=== PATIENT | male | born 1985 | race African-American/Black ===

== ENCOUNTER 2021-06-12 09:00 | Emergency (ER) | payer OTHER ==
[~2021-06-12] VITALS: Ht 180.3 cm; Wt 80.7 kg
[2021-06-12] MEDS ORDERED: KEPPRA XR750 MG PO (09:11)
[2021-06-12 11:11] VITALS: BP 144/56
== END 2021-06-12 11:17 | disposition home or self-care (01) ==
LOC: ER 09:00
PROVIDERS: Student in an Organized Health Care Education/Training Program
DX: M79.672 Pain in left foot (principal); Z79.899 Other long term (current) drug therapy

== ENCOUNTER 2021-07-01 11:28 | Emergency (ER) | payer OTHER ==
[~2021-07-01] VITALS: Ht 165.1 cm; Wt 79.8 kg
--- NOTE | ~2021-07-01 | EMS ---
[facility] [address] [place] [address] EMS Patient Care Report Name: MATTHEW REDMAN Room #: REG CORA Roper#: [id number] Admission: 07/01/21 Attend Phys: Discharge: Date of : [birth year] Report #: [id number] THIS REPORT FOR: //name// Report Transmitted: 07/01/2021 11:55 EMS Care Summary [place], [place]/[facility] Incident [id number] @ 07/01/2021 11:02 Incident Location [address] [place] [address], [place] [address] Patient MATTHEW REDMAN Male, 36 Years 1985 Patient Address [address] [address] Patient History Seizures, Patient Allergies No known allergies, Patient Medications Keppra, Chief Complaint SOB Disposition Transported No Lights/[place] Dispatch Reason Convulsions/Seizure Transported To [facility] Narrative pt found walking in parking lot. he called 911 stating he had a sz, fell down stairs and now is c/o CP. on arrival, female calls us over and states she has been w/ him the entire time and none of that is true. she states he brought [facility] [address] [place] [address] EMS Patient Care Report Name: MATTHEW REDMAN Room #: REG Jacquelin#: [id number] Admission: 07/01/21 Attend Phys: Discharge: Date of : [birth year] Report #: [id number] her car back and then would not leave the property. she told him she was going to call the police if he did not leave. that is when he called 911 and made up fall/sz story. when pt hears this he then says he wants to be evaluated for SOB and a lung problem he has had for several weeks. he states he has gone to several ERs/Drs and they tell him there is nothing wrong, "but I know something is wrong". he req eval at closest ER. pt to cot, VS transport w/o change. pt sleeps enroute. report to snowboarder. Initial Vitals @11:13P: 70,R: 18,BP: 151/91,Pain: 10/10,GCS: 15,SpO2: 100,Revised Trauma: 12, Assessments @11:10MENTAL:No Abnormalities,SKIN:No Abnormalities,HEENT:Head/Face: No Abnormalities,LUNG SOUNDS:ABDOMEN:PELVIS//GI:EXTREMITIES:PULSE:Radial: 2+ Normal,NEURO: Impression Shortness of breath Procedures @11:10 ALS Assessment Response: Unchanged @11:11 Stretcher Response: Unchanged Timeline 11:00,Call Received 11:00,Dispatch Notified 11:02,Dispatched 11:02,En Route 11:08,On Scene 11:10,At Patient 11:10,ALS Assessment,Response: Unchanged 11:11,Stretcher,Response: Unchanged 11:13,BP: 151/91 M,PULSE: 70,RR: 18 R,SPO2: 100 Ox,ETCO2: ,BG: ,PAIN: 10,GCS: 15, 11:13,Depart Scene 11:26,At Destination 11:46,Call Closed Disclaimer v1.1 Copyright 202 [employer] This EMS Care Summary contains data elements from the applicable legal record (which may be displayed differently). It is designed to provide pertinent information for the following purposes: continuity of care, clinical quality, and state data reporting. The complete legal record is available to ED staff and administrators of the receiving hospital in [employer]'s Patient Tracker. All data [address] [address] EMS Patient Care Report Name: MATTHEW REDMAN Room #: REG CORA Roper#: [id number] Admission: 07/01/21 Attend Phys: Discharge: Date of : [birth year] Report #: [id number] is provided "as is."
[~2021-07-01 11:28] MED LIST: KEPPRA XR750 MG PO
[2021-07-01 12:50] LABS: URINE BILIRUBIN NEGATIVE (Negative); URINE BLOOD NEGATIVE (Negative); URINE CLARITY CLEAR; URINE COLOR YELLOW; URINE GLUCOSE-RANDOM* NEGATIVE (Negative); URINE KETONES NEGATIVE (Negative); URINE LEUKOCYTES-REFLEX NEGATIVE (Negative); URINE NITRITE-REFLEX NEGATIVE (Negative); URINE PROTEIN (DIPSTICK) NEGATIVE (Negative)
[2021-07-01 13:01] LABS: HEMATOCRIT 39.3 % (42.0-52.0); HEMOGLOBIN 13.1 gm/dL (14.0-18.0); MCH 35.1 pg (26.0-34.0); MCHC 33.4 g/dL (28.0-37.0); MCV 105.2 fL (80.0-100.0); RBC 3.74 mil/uL (4.50-6.00); RDW 14.6 % (10.5-14.5); WBC 7.2 thou/uL (4.0-11.0)
[2021-07-01 13:04] LABS: AMP/METHAMP Negative (Negative); BARBITURATES Negative (Negative); BENZODIAZEPINES Negative (Negative); COCAINE Negative (Negative); METHADONE Negative (Negative); OPIATES Negative (Negative); PCP Negative (Negative)
[2021-07-01 13:15] LABS: CALCIUM 7.9 mg/dL (8.5-10.1); CREATININE 0.6 mg/dL (0.7-1.3); POTASSIUM 4.1 mmol/L (3.5-5.1)
[2021-07-01 13:20] LABS: ALBUMIN 3.6 g/dL (3.4-5.0); TOTAL BILIRUBIN 0.5 mg/dL (0.2-1.0); TOTAL PROTEIN 7.1 g/dL (6.4-8.2)
[2021-07-01 18:26] VITALS: BP 128/78
--- NOTE | 2021-07-02 06:53 | EKG ---
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
== END 2021-07-01 18:27 | disposition home or self-care (01) ==
LOC: ER 11:28
PROVIDERS: Nurse Practitioner Family
DX: F10.129 Alcohol abuse with intoxication, unspecified (principal); Z20.822 Contact with and (suspected) exposure to COVID-19; R79.89 Other specified abnormal findings of blood chemistry; D53.9 Nutritional anemia, unspecified; R56.9 Unspecified convulsions; Z79.899 Other long term (current) drug therapy

== ENCOUNTER 2021-07-14 04:13 | Emergency (ER) | payer OTHER ==
[~2021-07-14] VITALS: Ht 180.3 cm; Wt 77.1 kg
--- NOTE | ~2021-07-14 | EMS ---
[address] [address] EMS Patient Care Report Name: MATTHEW REDMAN Room #: DEP CORA Roper#: [id number] Admission: 07/14/21 Attend Phys: Discharge: 07/14/21 Date of : [birth year] Report #: [id number] THIS REPORT FOR: //name// Report Transmitted: 07/16/2021 15:14 EMS Care Summary [place], [place]/[facility] Incident [id number] @ 07/14/2021 03:39 Incident Location [address] [place] [address] Patient MATTHEW REDMAN Male, 36 Years 1985 Patient Address unknown Patient History Seizures,None Reported, Patient Allergies No known allergies, Patient Medications None Reported, Keppra, Chief Complaint seizures Disposition Transported No Lights/[place] Dispatch Reason Sick Person Transported To [facility] Narrative Upon arrival PT was in the upright standing position in parking lot. PT stated that he had left his friends apartment and then woke up near a dumpster due to having a seizure. PT was assisted to stretcher and was taken to back of ambulance for further medical evaluation and intervention. PT was then monitored for any change in condition while en route to hospital. Once at [address] [address] EMS Patient Care Report Name: MATTHEW REDMAN Room #: DEP ER Jacquelin#: [id number] Admission: 07/14/21 Attend Phys: Discharge: 07/14/21 Date of : [birth year] Report #: [id number] hospital PT was able to speak at normal volume and was able to answer all questions but only when asked by RN. Initial Vitals @03:51P: 75,R: 18,BP: 150/101,Pain: 0/10,GCS: 14,Glucose: 93,SpO2: 100,Revised Trauma: 12, @04:04P: 18,R: 18,BP: 142/92,Pain: 0/10,GCS: 14,SpO2: 100,Revised Trauma: 12, Assessments @03:50MENTAL:SKIN:No Abnormalities,HEENT:Head/Face: No Abnormalities,Eyes: No Abnormalities,Neck/Airway: No Abnormalities,LUNG SOUNDS:General: No Abnormalities,Left Upper: No Abnormalities,Right Upper: No Abnormalities,Left Lower: No Abnormalities,Right Lower: No Abnormalities,ABDOMEN:General: No Abnormalities,Left Upper: No Abnormalities,Right Upper: No Abnormalities,Left Lower: No Abnormalities,Right Lower: No Abnormalities,PELVIS//GI:No Abnormalities,EXTREMITIES:Capillary Refill: Left Upper: < 2 Sec,Capillary Refill: Right Upper: < 2 Sec,Left Arm: No Abnormalities,Right Arm: No Abnormalities,Left Leg: No Abnormalities,Right Leg: No Abnormalities,PULSE:Radial: 2+ Normal,NEURO:No Abnormalities, Impression Seizures Procedures @03:50 ALS Assessment Response: UnchangedSucceeded Timeline 03:37,Call Received 03:37,Dispatch Notified 03:39,Dispatched 03:43,En Route 03:49,On Scene 03:50,At Patient 03:50,ALS Assessment,Response: UnchangedSucceeded, 03:51,BP: 150/101 M,PULSE: 75,RR: 18 R,SPO2: 100 Ox,ETCO2: ,B,PAIN: 0,GCS: 14, 03:57,Depart Scene 04:04,BP: 142/92 M,PULSE: 18,RR: 18 R,SPO2: 100 Ox,ETCO2: ,BG: ,PAIN: 0,GCS: 14, 04:11,At Destination 04:21,Call Closed Disclaimer v1.1 Copyright 2020 [employer] This EMS Care Summary contains data elements from the applicable legal record [address] [address] EMS Patient Care Report Name: MATTHEW REDMAN Room #: DEP Jacquelin#: [id number] Admission: 07/14/21 Attend Phys: Discharge: 07/14/21 Date of : [birth year] Report #: [id number] (which may be displayed differently). It is designed to provide pertinent information for the following purposes: continuity of care, clinical quality, and state data reporting. The complete legal record is available to ED staff and administrators of the receiving hospital in [employer]'s Patient Tracker. All data is provided "as is."
[2021-07-14 06:51] LABS: ABSOLUTE NEUTROPHILS 2.1 thou/uL (1.4-8.2); BASOPHILS 0.8 % (0.0-2.0); EOSINOPHILS 0.4 % (0.0-3.0); HEMATOCRIT 41.1 % (42.0-52.0); LYMPHOCYTES 43.3 % (24.0-44.0); MCH 35.3 pg (26.0-34.0); MCHC 34.1 g/dL (28.0-37.0); MCV 103.7 fL (80.0-100.0); MONOCYTES 11.2 % (1.0-8.0); PLATELET COUNT 125 thou/uL (150-400); POLYS 44.3 % (36.0-66.0); RBC 3.96 mil/uL (4.50-6.00); RDW 14.1 % (10.5-14.5); WBC 4.7 thou/uL (4.0-11.0)
[2021-07-14 06:56] LABS: CALCIUM 8.5 mg/dL (8.5-10.1); CREATININE 0.6 mg/dL (0.7-1.3); POTASSIUM 3.2 mmol/L (3.5-5.1)
[2021-07-14 07:01] LABS: ALBUMIN 3.8 g/dL (3.4-5.0); MAGNESIUM 2.1 mg/dL (1.8-2.4); TOTAL BILIRUBIN 0.5 mg/dL (0.2-1.0); TOTAL PROTEIN 7.8 g/dL (6.4-8.2)
[2021-07-14 08:22] VITALS: BP 139/92
--- NOTE | 2021-07-14 09:58 | EKG ---
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
== END 2021-07-14 08:22 | disposition home or self-care (01) ==
LOC: ER 04:13
PROVIDERS: Emergency Medicine
DX: M54.2 Cervicalgia (principal); G40.909 Epilepsy, unspecified, not intractable, without status epilepticus; W10.8XXA Fall (on) (from) other stairs and steps, initial encounter; Y93.89 Activity, other specified; Y92.89 Other specified places as the place of occurrence of the external cause; Y99.9 Unspecified external cause status

== ENCOUNTER 2021-08-14 06:20 | Emergency (ER) | payer OTHER ==
[~2021-08-14] VITALS: Ht 180.3 cm; Wt 77.1 kg
--- NOTE | ~2021-08-14 | EMS ---
[address] [address] EMS Patient Care Report Name: MATTHEW REDMAN Room #: DEP CORA Roper#: [id number] Admission: 08/14/21 Attend Phys: Discharge: 08/14/21 Date of : [birth year] Report #: [id number] THIS REPORT FOR: //name// Report Transmitted: 08/15/2021 10:06 EMS Care Summary [place], [place]/[facility] Incident [id number] @ 08/14/2021 05:53 Incident Location [address] [place], [place] [id number] Patient MATTHEW HUMPHREY Male, 36 Years 1985 Patient Address [address] [place] [address] Patient History Seizures, Patient Allergies No known allergies, Patient Medications Keppra, Chief Complaint CHEST PAIN Disposition Transported No Lights/[place] Dispatch Reason Chest Pain (Non-Traumatic) Transported To [facility] Narrative M528 WAS DISPATCHED FOR A CHEST PAIN. UPON ARRIVAL THE PT WAS WALKING OUTSIDE OF THE APARTMENT COMPLEX. THE PT REPORTED HAVING CHEST PAIN THAT STARTED AROUND [address]. THE PT INFORMED EMS THAT WHEN HE COUGHED AND PUT HIS HEAD DOWN HE HAD FELT A KNOT POP OUT OF HIS RIB CAGE. [place] [address] EMS Patient Care Report Name: MATTHEW REDMAN Room #: DEP ER Jacquelin#: [id number] Admission: 08/14/21 Attend Phys: Discharge: 08/14/21 Date of : [birth year] Report #: [id number] DURING EVALUATION. THE PT ALSO DESCRIBED PAIN ON HIS BACK AND APPEARED UNCOMFORTABLE WHEN HE MOVED. THE PT DENIED ANY RECENT TRAUMA AND NO DEFORMITIES WERE FOUND. THE PT WAS TRANSPORTED TO THE HOSPITAL AND MONITORED ENROUTE. THE PT WAS TRANSFERRED TO HOSPITAL STAFF WITH A REPORT. EMS RETURNED TO SERVICE. Initial Vitals @06:06P: 88,R: 14,BP: 170/100,Pain: 4/10,GCS: 15,SpO2: 99,Revised Trauma: 12,MA Suspected: false @06:16P: 88,R: 16,BP: 160/110,Pain: 4/10,GCS: 15,SpO2: 98,Revised Trauma: 12,MA Suspected: false Assessments @06:03MENTAL:Place Oriented,Person Oriented,Event Oriented,Time Oriented,SKIN:HEENT:Head/Face: No Abnormalities,Neck/Airway: No Abnormalities,LUNG SOUNDS:General: No Abnormalities,ABDOMEN:General: No Abnormalities,PELVIS//GI:No Abnormalities,EXTREMITIES:Left Arm: No Abnormalities,Right Arm: No Abnormalities,Left Leg: No Abnormalities,Right Leg: No Abnormalities,PULSE:Radial: 2+ Normal,NEURO:No Abnormalities, Impression Chest Pain / Discomfort Procedures @06:03 ALS Assessment Response: UnchangedSucceeded @06:06 3-Lead ECG Response: UnchangedSucceeded @06:16 12-Lead ECG Response: UnchangedSucceeded Timeline 05:48,Call Received 05:48,Dispatch Notified 05:53,Dispatched 05:55,En Route 06:02,On Scene 06:03,At Patient 06:03,ALS Assessment,Response: UnchangedSucceeded, 06:06,3-Lead ECG,Response: UnchangedSucceeded, 06:06,BP: 170/100 M,PULSE: 88,RR: 14 R,SPO2: 99 Ox,ETCO2: ,BG: ,PAIN: 4,GCS: 15, 06:09,Depart Scene 06:16,12-Lead ECG,Response: UnchangedSucceeded, 06:16,BP: 160/110 M,PULSE: 88,RR: 16 R,SPO2: 98 Ox,ETCO2: ,BG: ,PAIN: 4,GCS: 15, 06:18,At Destination 06:34,Call Closed [facility] [address] [place] [address] EMS Patient Care Report Name: MATTHEW REDMAN Room #: DEP CORA Roper#: [id number] Admission: 08/14/21 Attend Phys: Discharge: 08/14/21 Date of : [birth year] Report #: [id number] Disclaimer v1.1 Copyright 2020 [employer] This EMS Care Summary contains data elements from the applicable legal record (which may be displayed differently). It is designed to provide pertinent information for the following purposes: continuity of care, clinical quality, and state data reporting. The complete legal record is available to ED staff and administrators of the receiving hospital in [employer]'s Patient Tracker. All data is provided "as is."
[2021-08-14 06:53] LABS: ABSOLUTE NEUTROPHILS 3.2 thou/uL (1.4-8.2); BASOPHILS 1.2 % (0.0-2.0); EOSINOPHILS 0.5 % (0.0-3.0); HEMATOCRIT 36.4 % (42.0-52.0); HEMOGLOBIN 12.4 gm/dL (14.0-18.0); LYMPHOCYTES 36.4 % (24.0-44.0); MCH 35.2 pg (26.0-34.0); MCHC 34.1 g/dL (28.0-37.0); MCV 103.2 fL (80.0-100.0); MONOCYTES 10.6 % (1.0-8.0); PLATELET COUNT 117 thou/uL (150-400); POLYS 51.3 % (36.0-66.0); RBC 3.53 mil/uL (4.50-6.00); RDW 13.7 % (10.5-14.5); WBC 6.2 thou/uL (4.0-11.0)
[2021-08-14 06:56] LABS: CALCIUM 8.3 mg/dL (8.5-10.1); CREATININE 0.6 mg/dL (0.7-1.3); POTASSIUM 3.4 mmol/L (3.5-5.1)
[2021-08-14 07:06] LABS: ALBUMIN 3.3 g/dL (3.4-5.0); TOTAL BILIRUBIN 0.3 mg/dL (0.2-1.0); TOTAL PROTEIN 7.2 g/dL (6.4-8.2)
[2021-08-14] MEDS ORDERED: FLEXERIL PO (08:22)
[2021-08-14 08:46] VITALS: BP 153/91
--- NOTE | 2021-08-14 10:25 | EKG ---
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: am : 1985 Requested By: Lyle Rodirguez Order Number: [id number] MD: Vamsi Akers Measurements Intervals [place] Rate: 70 P: 58 AK: 164 QRS: 70 QRSD: 94 T: 44 QT: 412 QTc: 445 Interpretive Statements Sinus rhythm Consider left ventricular hypertrophy Compared to ECG 07/14/2021 04:19:37 T-wave abnormality no longer present Electronically Signed On 08-14-2021 10:24:38 PHYSICIAN PRESIDENT by Vamsi Akers [email or web address] <ELECTRONICALLY SIGNED> By: Vamsi Akers MD, [facility] 08/14/21 1024 0630 Vamsi Akers MD, FACC /EPI
== END 2021-08-14 08:46 | disposition home or self-care (01) ==
LOC: ER 06:20
PROVIDERS: Emergency Medicine
DX: R07.89 Other chest pain (principal); Z20.822 Contact with and (suspected) exposure to COVID-19; Z79.899 Other long term (current) drug therapy